=== PATIENT | male | born 1985 | race African-American/Black ===

== ENCOUNTER 2022-09-14 09:00 | Emergency (ER) | payer OTHER ==
[~2022-09-14] VITALS: Ht 180.3 cm; Wt 80.0 kg
[2022-09-14 09:04] VITALS: BP 121/84
[2022-09-14] MEDS ORDERED: LIDOCAINE HCL 1% 20ML VIAL (Pyxis) INJ INFIL NR (11:30)
== END 2022-09-14 12:36 | disposition home or self-care (01) ==
LOC: ER 09:00
DX: S61.412A Laceration without foreign body of left hand, initial encounter (principal); Z88.0 Allergy status to penicillin; W26.0XXA Contact with knife, initial encounter; Y93.89 Activity, other specified; Y92.89 Other specified places as the place of occurrence of the external cause; Y99.8 Other external cause status
CPT/HCPCS: 12001; 73130; 99283; J3490